=== PATIENT | female | born 1985 | race Asian ===

== ENCOUNTER 2020-10-29 22:29 | Emergency (ER) | payer OTHER ==
[~2020-10-29] VITALS: Ht 157.5 cm; Wt 76.9 kg
[2020-10-29] MEDS ORDERED: LORA5TAB7 (23:05)
[2020-10-29] MEDS ORDERED: CETI10CA (23:05)
[2020-10-29 23:09] VITALS: BP 163/106
--- NOTE | 2020-10-29 23:35 | RAD ---
Exam: Left hand 3 views INDICATION: Dog bite palm TECHNIQUE: Frontal, lateral and oblique views of the left hand Comparisons: None FINDINGS: Bone mineralization is normal. No acute or healed fractures. Soft tissues are unremarkable. Joint spa kylie are well-maintained. IMPRESSION: No acute osseous abnormality. No radiopaque foreign body identified. Electronically signed by: Sheng Washington MD (10/29/2020 11:33 PM) STEPHANIE
--- NOTE | 2020-10-29 23:45 | PHYS DOC ---
Past History Past Medical History: No Pertinent History Additional Past Medical Histor: SEASONAL ALLERGIES Past Surgical History: No Surgical History Alcohol Use: Occasionally Adult General Chief Complaint Chief Complaint: ANIMAL BITE HPI HPI Patient is a 35-year-old female presenting for left hand pain. States she dropped food in her household when her x2 pet dogs started fighting trying to recover dropped food. Patient reports trying to clear the dogs away from the food when one of the dogs which was a pit bull accidentally bit her left hand. Patient denies any puncture wound, lacerations or other abnormalities but admits focal ongoing pain to second and third digits of her hand. She has decreased range of motion of pain but otherwise denies any changes in motor or sensory function, no new neurologic deficits reported. She is here concerned of potential bony abnormality as a result from the bite Review of Systems Review of Systems Fourteen body systems of review of systems have been reviewed. See HPI for pertinent positives and negative responses, other bird all other systems are negative, non-pertinent or non-contributory Allergies Allergies Allergies Coded Allergies Type Severity Reaction Last Updated Verified No Known Drug Allergies 10/29/20 No Physical Exam Physical Exam Constitutional: Well developed, well nourished, no acute distress, non-toxic appearance. HENT: Normocephalic, atraumatic, bilateral external ears normal, oropharynx moist, no oral exudates, nose normal. Eyes: PERRLA, EOMI, conjunctiva normal, no discharge. Neck: Normal range of motion, no tenderness, supple, no stridor. Cardiovascular: Heart rate regular per monitor Lungs & Thorax: No respiratory distress or accessory muscle use, bilateral chest rise Abdomen: Abdomen soft, non-tender, bowel sounds present in all quadrants, no guarding or rebound, nonacute abdomen. Skin: Warm, dry, no erythema, no rash. Back: No tenderness, no CVA tenderness. Extremities: No cyanosis, no clubbing, ROM intact, no edema. Bilateral hands unless otherwise noted: Sensation: SILT in FF/IF dorsal, proximal (radial), SF tip (ulnar), IF volar tip (median) Motor: + Thumbs Up (radial), OK sign (median), X with 2nd 3rd fingers (ulnar) Flexion & Extension 1-5 against resistance, Wrist/finger extension off table (radial), Finger AB/AD-duction (ulnar), Thumb to pinky (median). Compartment soft. Cap refill less than 3 seconds of all fingers, no scaphoid tenderness to palpation. Generalized tenderness with palpation over second and third metacarpal bones Neurologic: Alert and oriented X 3, grossly normal motor & sensory function, no focal deficits noted. Psychologic: Affect normal, judgement normal, mood normal. Current Patient Data Vital Signs Vital Signs Date Time Temp Pulse Resp B/P (MAP) Pulse Ox O2 Delivery O2 Flow Rate FiO2 10/29/20 23:09 96.7 115 16 163/106 (125) 98 Room Air EKG EKG [] Radiology/Procedures Radiology/Procedures Exam: Left hand 3 views INDICATION: Dog bite palm TECHNIQUE: Frontal, lateral and oblique views of the left hand Comparisons: None FINDINGS: Bone mineralization is normal. No acute or healed fractures. Soft tissues are unremarkable. Joint spaces are well-maintained. IMPRESSION: No acute osseous abnormality. No radiopaque foreign body identified. Electronically signed by: Sheng Washington MD (10/29/2020 11:33 PM) [facility] Heart Score Risk Factors: Risk Factors: DM, Current or recent (<one month) smoker, HTN, HLP, family history of CAD, obesity. Risk Scores: Risk Factors: DM, Current or recent (<one month) smoker, HTN, HLP, family history of CAD, obesity. Course & Med Decision Making Course & Med Decision Making Discussed with the patient all findings and diagnostic testing. I discussed most likely diagnosis of musculoskeletal pain without bony abnormality status post dog bite. I discussed no indication for antibiotics or other intervention given low severity of dog bite. Patient's dog is up-to-date on all vaccines, patient will be monitoring dog's for rabies, no indication for any prophylaxis or other measures at this time. Patient educated on supportive care practices that should be continued at home such as rice protocol and NSAIDs/Tylenol as needed for pain. I stressed need for close outpatient follow-up to review today's ER visit. Strict return precautions were also discussed at length with good understanding by patient. Patient voiced understanding and agreement with the plan. Patient knows to come back for repeat evaluation if concerning signs or symptoms present prior to outpatient follow-up. Hemodynamically stable, ambulato ry and well-appearing at time of disposition. Dragon Disclaimer Dragon Disclaimer This electronic medical record was generated, in whole or in part, using a voice recognition dictation system. Departure Departure: Impression: Primary Impression: Dog bite of hand without complication Disposition: 01 DC HOME SELF CARE/HOMELESS Condition: STABLE Referrals: NON,STAFF (PCP) Additional Instructions: You were seen for musculoskeletal pain that ensued from a dog bite. Radiograph imaging did not show any bony abnormalities. There were no lesions to repair here in ER today. There is currently no indication for any antibiotics or other diagnostic work-up. Continue supportive care practices at home. You should call your primary care physician first thing Sunday to schedule outpatient follow-up for repeat evaluation in upcoming 3 to 7 days time. You should return to the ED if you develop worsening pain, fever, numbness, tingling, weakness, or any other new or concerning symptoms. SANJIV GENAO DO Oct 29, 2020 23:45
== END 2020-10-30 00:17 | disposition home or self-care (01) ==
LOC: ER 22:29
DX: S61.452A Open bite of left hand, initial encounter (principal); W54.0XXA Bitten by dog, initial encounter; Y93.89 Activity, other specified; Y92.89 Other specified places as the place of occurrence of the external cause; Y99.8 Other external cause status
CPT/HCPCS: 73130; 99283

== ENCOUNTER 2022-01-27 22:49 | Emergency (ER) | payer OTHER ==
[~2022-01-27] VITALS: Ht 157.5 cm; Wt 76.9 kg
[~2022-01-27 22:49] MED LIST: CETI10CA; LORA5TAB7
--- NOTE | 2022-01-27 23:01 | PHYS DOC ---
Past History Past Medical History: No Pertinent History Additional Past Medical Histor: SEASONAL ALLERGIES Past Surgical History: No Surgical History Alcohol Use: Occasionally General Adult EDM: Chief Complaint: RAPID HEART RATE HPI: HPI: ".. I ve had a rapid heart rate now for weeks.. every time it has been check ed ..it has been above 100... most time more 120 or more.. I was having episode of fast rates tonight.. I got hx of cardiac problems on both sides of my family... I just got worried tonight... 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 Patient has had several checks of her heart rate in last few weeks and has always been above 100 . Many times it has been above 120. Patient denies any specific history of coronary artery disease with her. Patient does have a history of hypertension which she takes meds .. Patient recent travel in October from duty station in [place]. Patient has been at [place] since her assignment here in October. No history of excessive caffeine use. No history of hypothyroidism. No history of DVTs. Patient somewhat anxious about the episodes of tachycardia. Review of Systems: Review of Systems: Constitutional: Denies fever or chills Eyes: Denies change in visual acuity HENT: Denies nasal congestion or sore throat Respiratory: Denies cough or shortness of breath Cardiovascular: Complains of tachycardia GI: Denies abdominal pain, nausea, vomiting, bloody stools or diarrhea : Denies dysuria Musculoskeletal: Denies back pain or joint pain Integument: Denies rash Neurologic: Denies headache, focal weakness or sensory changes Endocrine: Denies polyuria or polydipsia Lymphatic: Denies swollen glands Psychiatric: Denies depression or anxiety Family History: Family History: There is cardiac disorders on both sides of family starting in the 50s both on father, mother and uncles Current Medications: Current Meds: See nursing for home meds Allergies: Allergies: Allergies Coded Allergies Type Severity Reaction Last Updated Verified No Known Drug Allergies 10/29/20 No Physical Exam: PE: Constitutional: Well developed, well nourished, no acute distress, non-toxic appearance. [] HENT: Normocephalic, atraumatic, bilateral external ears normal, oropharynx moist, no oral exudates, nose normal. [] Eyes: PERRLA, EOMI, conjunctiva normal, no discharge. [] Neck: Normal range of motion, no tenderness, supple, no stridor. [] Cardiovascular: Tachycardia heart rate regular rhythm, no murmur [] Lungs & Thorax: Bilateral breath sounds clear to auscultation [] Abdomen: Bowel sounds normal, soft, no tenderness, no masses, no pulsatile masses. [] Skin: Warm, dry, no erythema, no rash. [] Back: No tenderness, no CVA tenderness. [] Extremities: No tenderness, no cyanosis, no clubbing, ROM intact, no edema. [] No cording Neurologic: Alert and oriented X 3, normal motor function, normal sensory function, no focal deficits noted. [] Psychologic: Affect normal, judgement normal, mood normal. [] EKG: EKG: My interpretation EKG shows a sinus tachycardia 111 bpm. Does have bimodal P w aves in left leads. No findings of acute STEMI or contralateral changes. Time of EKG is 2321 hrs. [] My interpretation EKG #2 shows a sinus tachycardia at 107 bpm. Does have some mild bipolar P waves left leads. No findings of acute STEMI. No acute interval change. Time of EKG is 153 hours Radiology/Procedures: Radiology/Procedures: [] IMAGING REPORT Signed PATIENT: BRENNON BULL ACCOUNT: [id number] : 1985 LOCATION: ER AGE: 36 SEX: F EXAM STATUS: REG ER ORD. PHYSICIAN: SADE VINCENT MD REASON: tachy PROCEDURE: PORTABLE CHEST 1V XR CHEST 1V 01/27/2022 11:33 PM INDICATION: Tachycardia COMPARISON: None available TECHNIQUE: Portable frontal view of the chest is provided. FINDINGS: The cardiomediastinal silhouette is within normal limits. Lungs are clear. There are no significant pleural effusions. There is no pulmonary vascular congestion. No pneumothorax. No suspicious osseous abnormality. IMPRESSION: There is no acute cardiopulmonary process. Electronically signed by: Miguel Angel Davis MD (01/27/2022 11:56 PM) [facility] DICTATED AND SIGNED BY: MIGUEL ANGEL DAVIS MD DATE: 01/27/22 6111 CC: SADE VINCENT MD; JODY FARRIS MD ~ Heart Score: C/O Chest Pain: No HEART Score for Chest Pain: HEART Score for Chest Pain Response (Comments) Value History Slighlty/Non-Suspicious 0 ECG Normal 0 Age < 45 0 Risk Factors No Risk Factors 0 Troponin < Normal Limit 0 Total 0 Risk Factors: Risk Factors: DM, Current or recent (<one month) smoker, HTN, HLP, family history of CAD, obesity. Risk Scores: Score 0 - 3: 2.5% MACE over next 6 weeks - Discharge Home Score 4 - 6: 20.3% MACE over next 6 weeks - Admit for Clinical Observation Score 7 - 10: 72.7% MACE over next 6 weeks - Early Invasive Strategies Course & Med Decision Making: Course & Med Decision Making Pertinent Labs and Imaging studies reviewed. (See chart for details) Follow-up for primary care. Follow-up with cardiology consider outpatient stress testing. Consider adding a beta-fabián to your hypertensive meds this may also control your hypertension as well as age and rate control. Take Keflex 500 mg 3 times a day for 7 days for UTI. Follow-up culture. Push fluids. Push flimsy drinks. Return if any concerns. Impression: 1. Tachycardia 2. Mild elevation in glucose 141 3. UTI [] Dragon Disclaimer: Dragon Disclaimer: This electronic medical record was generated, in whole or in part, using a voice recognition dictation system. Departure Departure: Referrals: JODY FARRIS MD (PCP) Scripts Cephalexin (KEFLEX) 500 Mg Capsule 500 MG PO TID for uti for 7 Days, #21 CAP Prov: SADE VINCENT MD 01/28/22 Metoprolol Succinate (METOPROLOL SUCCINATE ( XL )) 25 Mg Tab.er.24h 25 MG PO DAILY for FOR HYPERTENSION, #30 TAB 0 Refills Prov: SADE VINCENT MD 01/28/22 Dragon Disclaimer This chart was dictated in whole or in part using Voice Recognition software in a busy, high-work load, and often noisy Emergency Department environment. It may contain unintended and wholly unrecognized errors or omissions. Dragon Disclaimer This chart was dictated in whole or in part using Voice Recognition software in a busy, high-work load, and often noisy Emergency Department environment. It may contain unintended and wholly unrecognized errors or omissions. SADE VINCENT MD Jan 27, 2022 23:01
[2022-01-27] MEDS ORDERED: IV RINGERS SOLUTION,LACTATED 1,000 ML IV SCH (23:15)
[2022-01-27 23:53] LABS: BASO # 0.1 x10^3/uL (0.0-0.2); BASO % 1 % (0-3); EOS # 0.1 x10^3/uL (0.0-0.7); EOS % 1 % (0-3); HEMATOCRIT 39.7 % (36.0-47.0); HEMOGLOBIN 13.2 g/dL (12.0-15.5); LYMPH # 2.5 x10^3/uL (1.0-4.8); LYMPH % 23 % (24-48); MEAN CORPUSCULAR HEMOGLOBIN 30 pg (25-35); MEAN CORPUSCULAR HGB CONC 33 g/dL (31-37); MEAN CORPUSCULAR VOLUME 91 fL (79-100); MONO # 0.8 x10^3/uL (0.0-1.1); MONO % 7 % (0-9); NEUT # 7.2 x10^3uL (1.8-7.7); NEUT % 68 % (31-73); PLATELET COUNT 436 x10^3/uL (140-400); RED BLOOD COUNT 4.38 x10^6/uL (3.50-5.40); RED CELL DISTRIBUTION WIDTH 13.1 % (11.5-14.5); WHITE BLOOD COUNT 10.6 x10^3/uL (4.0-11.0)
--- NOTE | 2022-01-27 23:59 | RAD ---
XR CHEST 1V 01/27/2022 11:33 PM INDICATION: Tachycardia COMPARISON: None available TECHNIQUE: Portable frontal view of the chest is provided. FINDINGS: The cardiomediastinal silhouette is within normal limits. Lungs are clear. There are no significant pleural effusions. There is no pulmonary vascular congestion. No pneumothora x. No suspicious osseous abnormality. IMPRESSION: There is no acute cardiopulmonary process. Electronically signed by: Michell Gutierrez MD (01/27/2022 11:56 PM) [facility]
[2022-01-28 00:03] LABS: CREATININE 0.8 mg/dL (0.6-1.0); GFR 81.6; POTASSIUM 3.6 mmol/L (3.5-5.1)
[2022-01-28 00:16] LABS: ALBUMIN 3.4 g/dL (3.4-5.0); DIRECT BILIRUBIN 0.1 mg/dL (0.0-0.2); MAGNESIUM 2.4 mg/dL (1.8-2.4); TOTAL BILIRUBIN 0.2 mg/dL (0.2-1.0); TOTAL PROTEIN 6.9 g/dL (6.4-8.2)
[2022-01-28] MEDS ORDERED: METOPROLOL SUCC 24HR ER 25 MG TAB.ER.24H. PO ONE (01:45)
[2022-01-28 01:56] LABS: BARBITURATES NEG (NEG); BENZODIAZEPINES NEG (NEG); CANNABINOIDS NEG (NEG); COCAINE NEG (NEG); METHADONE NEG (NEG); OPIATES NEG (NEG); PHENCYCLIDINE NEG (NEG)
[2022-01-28 01:57] LABS: AMPHETAMINE/METHAMPHETAMINE NEG (NEG)
[2022-01-28 01:58] LABS: CLARITY,URINE HAZY; COLOR,URINE YELLOW; GLUCOSE,URINE NEG (NEG); NITRITE,URINE NEG (NEG); UROBILINOGEN,URINE 0.2 mg/dL (0.2 mg/dL)
[2022-01-28] MEDS ORDERED: METO-239 PO (01:58)
[2022-01-28 01:59] LABS: BACTERIA,URINE MOD /HPF (0-FEW); RBC,URINE OCC /HPF (0-2); SQUAMOUS EPITHELIAL CELL,UR MOD /LPF
[2022-01-28 02:00] VITALS: BP 151/76
[2022-01-28] MEDS ORDERED: CEPHALEXIN 250 MG CAPSULE PO ONE (02:30)
[2022-01-28] MEDS ORDERED: CEPH500C PO (02:33)
--- NOTE | 2022-01-28 18:56 | EKG ---
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
--- NOTE | 2022-01-29 01:09 | EKG ---
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
== END 2022-01-28 02:57 | disposition home or self-care (01) ==
LOC: ER 22:56
DX: N39.0 Urinary tract infection, site not specified (principal); R73.9 Hyperglycemia, unspecified; R00.0 Tachycardia, unspecified; I10 Essential (primary) hypertension
CPT/HCPCS: 36415; 71045; 80048; 80076; 80307; 81001; 82550; 83690; 83735; 83880; 84443; 84484; 85025; 85379; 85610; 85730; 87086; 93005; 96360; 99285; J7120